=== PATIENT | male | born 1970 | race African-American/Black ===

== ENCOUNTER 2017-08-10 15:23 | Emergency (ER) | payer MEDICAID ==
[~2017-08-10] VITALS: Ht 177.8 cm; Wt 77.0 kg
[~2017-08-10 15:23] MED LIST: COLACE; IBUPROFEN
[2017-08-10] MEDS ORDERED: CEPHALEXIN 500MG CAPSULE PO ONE (19:00)
[2017-08-10] MEDS ORDERED: BACITRACIN ZINC OINT UDPKT TOP ONE (19:00)
[2017-08-10] MEDS ORDERED: SULFAMETHOXAZOLE/TRIMETHOPRIM 400/80MG TAB PO ONE (19:00)
[2017-08-10] MEDS ORDERED: SILVER SULFADIAZINE 1% CREAM 50GM TOP SCH (19:00)
[2017-08-10] MEDS ORDERED: SILVER SULFADIAZINE 1% CREAM 25GM TOP ONE (19:15)
[2017-08-10] MEDS ORDERED: ACETAMINOPHEN WITH CODEINE 300/30MG TABLET PO ONE (21:00)
[2017-08-10] MEDS ORDERED: HYDROCODONE/ACETAMINOPHEN 5/325MG TABLET PO ONE (21:15)
[2017-08-11 13:14] VITALS: BP 122/77
== END 2017-08-11 14:00 | disposition home or self-care (01) ==
LOC: ER 15:23
DX: L89.309 Pressure ulcer of unspecified buttock, unspecified stage (principal); G82.20 Paraplegia, unspecified; F17.200 Nicotine dependence, unspecified, uncomplicated; F12.10 Cannabis abuse, uncomplicated; Z59.0 Homelessness; Z93.3 Colostomy status; Z98.890 Other specified postprocedural states
CPT/HCPCS: 99284; X7700; Z7610

== ENCOUNTER 2024-01-28 00:49 | Emergency (ER) | payer MEDICAID ==
[~2024-01-28] VITALS: Ht 152.4 cm; Wt 69.0 kg
[2024-01-28 00:58] VITALS: O2SAT 100
[2024-01-28 02:36] LABS: CLARITY URINE TURBID (CLEAR); COLOR URINE YELLOW (YELLOW); GLUCOSE URINE NEGATIVE (NEGATIVE); KETONES URINE TRACE (NEGATIVE); LEUKOCYTE ESTERASE URINE 3+ (NEGATIVE); NITRITE URINE POSITIVE (NEGATIVE); OCCULT BLOOD URINE 2+ (NEGATIVE); PH URINE 6.5 (4.5-8.0); PROTEIN URINE TRACE (NEGATIVE); SPECIFIC GRAVITY URINE 1.017 (1.005-1.030)
[2024-01-28] MEDS: ACETAMINOPHEN 325MG TABLET PO ONE (02:51)
[2024-01-28] MEDS ORDERED: CIPR-263 MT (04:25)
[2024-01-28 04:32] LABS: RBC URINE 15-25 /hpf (0-2)
[2024-01-28 04:33] LABS: BACTERIA URINE 4+; SQUAMOUS EPITHELIAL CELL URINE 2+ /lpf (RARE/1+); WBC URINE 15-25 /hpf (0-2)
[2024-01-28 08:16] VITALS: BP 142/86; PULSE 82; RESP 14; TEMP 98.3
== END 2024-01-28 09:15 | disposition home or self-care (01) ==
LOC: ER 00:49
DX: T83.091A Other mechanical complication of indwelling urethral catheter, initial encounter (principal); N39.0 Urinary tract infection, site not specified; G82.20 Paraplegia, unspecified; Z00.00 Encounter for general adult medical examination without abnormal findings
CPT/HCPCS: 76705; 81003; 87077; 87186; 99284

== ENCOUNTER 2024-10-07 00:03 | Emergency (ER) | payer MEDICAID ==
[~2024-10-07] VITALS: Ht 177.8 cm; Wt 64.0 kg
[~2024-10-07 00:03] MED LIST changes: +CIPR-263 MT
[2024-10-07 00:09] VITALS: TEMP 36.7; O2SAT 98
[2024-10-07] MEDS ORDERED: MORPHINE SULFATE 4 MG/ML INJ (FOR IV/IM USE) IV ONE (02:15)
[2024-10-07 02:23] LABS: CLARITY URINE TURBID (CLEAR); COLOR URINE ORANGE (YELLOW); GLUCOSE URINE NEGATIVE (NEGATIVE); KETONES URINE TRACE (NEGATIVE); LEUKOCYTE ESTERASE URINE 3+ (NEGATIVE); NITRITE URINE POSITIVE (NEGATIVE); OCCULT BLOOD URINE 3+ (NEGATIVE); PROTEIN URINE 2+ (NEGATIVE); SPECIFIC GRAVITY URINE 1.018 (1.005-1.030)
[2024-10-07] MEDS: MORPHINE SULFATE 4 MG/ML INJ (FOR IV/IM USE) IM ONE (02:37)
[2024-10-07] MEDS ORDERED: NITR100C MT (04:34)
[2024-10-07] MEDS ORDERED: TRAM50TA3 MT (04:35)
[2024-10-07] MEDS: NITROFURANTOIN 100MG M/M CAPSULE PO ONE (04:36)
[2024-10-07] MEDS: TRAMADOL 50MG TABLET PO ONE (04:49)
[2024-10-07 06:09] VITALS: BP 114/73; PULSE 90; RESP 22; O2SAT 100
[2024-10-07 06:19] LABS: WBC URINE 25-50 /hpf (0-2)
[2024-10-07 06:21] LABS: RBC URINE 25-50 /hpf (0-2)
[2024-10-07 06:22] LABS: BACTERIA URINE 4+; SQUAMOUS EPITHELIAL CELL URINE NONE SEEN /lpf (RARE/1+)
[2024-10-07 06:24] LABS: TRIPLE PHOSPHATE CRYSTAL URINE 1+ /lpf
[2024-10-07] MEDS: KETOROLAC 30MG/ML VIAL IV ONE (09:11)
== END 2024-10-07 11:44 | disposition home or self-care (01) ==
LOC: ER 00:03
DX: T83.018A Breakdown (mechanical) of other urinary catheter, initial encounter (principal); G82.20 Paraplegia, unspecified; N31.9 Neuromuscular dysfunction of bladder, unspecified; N39.0 Urinary tract infection, site not specified; Z87.440 Personal history of urinary (tract) infections; Z93.3 Colostomy status; Z99.3 Dependence on wheelchair
CPT/HCPCS: 99285; 51705; 96374; 81003; 87086; 87186; 87077; 96372; J1885; 99284; J2270